=== PATIENT | male | born 1930 | race Caucasian/White ===

== ENCOUNTER → 2016-07-29 | Outpatient (CLI) | payer MEDICARE, OTHER | LOC: LAB 10:50 | PROVIDERS: ATTEND Family Medicine | DX: E87.1 Hypo-osmolality and hyponatremia (principal) | CPT/HCPCS: 36415; 83930; 84300 ==

== ENCOUNTER → 2016-09-16 | Outpatient (REF) | payer MEDICARE, OTHER ==
[~2016-09-16] MED LIST: ATOR80TA PO; BISO10TA PO; BISO5TAB PO; CALC-723 PO; CHOL200025 PO; CHOL4PAC16 PO; CYAN250010 PO; CYAN250T PO; ESCI10TA PO; FENO134C PO; GLIM2TAB PO; GLIM4TAB PO; LOSA1TAB15 PO; METF1000 PO; MIRT30TA6 PO; OMEP20CA12 PO
[2016-09-16 16:27] LABS: BASOPHILS % (AUTO) 1 % (0-2); EOSINOPHILS # (AUTO) 0.2 10^3uL; EOSINOPHILS % (AUTO) 2 % (0-4); LYMPHOCYTES # (AUTO) 1.5 X10^3; MEAN CORPUSCULAR HGB CONC 34.6 g/dL (31.0-37.0); MEAN CORPUSCULAR VOLUME 90 FL (80-100); MEAN PLATELET VOLUME 10.2 FL (6.0-9.5); MONOCYTES # (AUTO) 1.8 X10^3; MONOCYTES % (AUTO) 15 % (3-11); NEUTROPHILS % (AUTO) 69 % (51-67); PLATELET COUNT 234 10^3uL (150-450); WHITE BLOOD COUNT 11.57 10^3uL (4.0-11.0)
[2016-09-16 16:51] LABS: ALBUMIN 3.8 g/dL (3.4-5.0); ANION GAP 13.8 MEQ/L (3-15); TOTAL PROTEIN 6.8 g/dL (6.4-8.5)
== END ==
LOC: LAB 16:00
PROVIDERS: ATTEND Family Medicine
DX: I10 Essential (primary) hypertension (principal); E87.1 Hypo-osmolality and hyponatremia; R09.89 Other specified symptoms and signs involving the circulatory and respiratory systems
CPT/HCPCS: 80053; 85025; 86140

== ENCOUNTER → 2016-09-16 | Outpatient (CLI) | payer MEDICARE, OTHER ==
--- NOTE | 2016-09-16 16:44 | Diagnostic Imaging Report ---
INDICATION: Cough. COMPARISON STUDIES: Chest from March 20. FINDINGS: Frontal and lateral views of the chest demonstrate stable COPD changes. No focal infiltrates are present. Heart size and vascularity are normal. There are no pleural effusions. Coronary stent is in place. IMPRESSION: COPD and coronary artery disease. Dictated by: Dictated on workstation # [id number]
== END ==
LOC: RAD 16:13
PROVIDERS: ATTEND Family Medicine
DX: R05 Cough (principal); J44.9 Chronic obstructive pulmonary disease, unspecified; I25.10 Atherosclerotic heart disease of native coronary artery without angina pectoris
CPT/HCPCS: 71020